=== PATIENT | female | born 1975 | race Asian ===

== ENCOUNTER 2018-10-01 11:49 | Emergency (ER) | payer OTHER ==
[~2018-10-01] VITALS: Ht 170.2 cm; Wt 59.9 kg
[2018-10-01 12:15] VITALS: Ht 170.2 cm; Wt 59.9 kg
[2018-10-01 15:07] VITALS: BP 132/81
== END 2018-10-01 15:08 | disposition home or self-care (01) ==
LOC: ED 11:49
DX: M54.5 Low back pain (principal)
CPT/HCPCS: J1885